=== PATIENT | male | born 1975 | race Caucasian/White ===

== ENCOUNTER 2018-09-06 10:21 | Emergency (ER) | payer OTHER ==
[~2018-09-06] VITALS: Ht 185.4 cm; Wt 100.0 kg
[2018-09-06 10:29] VITALS: BP 138/71
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
[2018-09-06] MEDS ORDERED: LIDOCAINE-MPF 1%, 5ML ONE (10:47)
[2018-09-06] MEDS ORDERED: LIDOCAINE-MPF 1%, 5ML INFIL ONE (11:00)
--- NOTE | 2018-09-06 11:00 | NUR ---
RIGHT HAND LACERATION CLEANSED WITH 1LITER SALINE WITH MINIMAL DISCOMFORT. SUPPLIES FOR PROVIDER SUTURING OBTAINED WELL
--- NOTE | 2018-09-06 12:01 | NUR ---
TASK RN: Patient/ AND [employer] given discharge instructions and they have confirmed that they understand the instructions. Patient ambulatory with steady gait.
== END 2018-09-06 12:02 | disposition home or self-care (01) ==
LOC: ED 11:44
DX: S61.214A Laceration without foreign body of right ring finger without damage to nail, initial encounter (principal); S61.216A Laceration without foreign body of right little finger without damage to nail, initial encounter; W21.07XA Struck by softball, initial encounter; Y93.64 Activity, baseball; Y92.149 Unspecified place in prison as the place of occurrence of the external cause; Y99.8 Other external cause status
CPT/HCPCS: 12001; 99283